=== PATIENT | female | born 1955 ===

== ENCOUNTER 2018-10-20 23:59 | Emergency (ER) | payer OTHER ==
[2018-10-21 00:13] VITALS: O2SAT 97
[2018-10-21 00:43] LABS: HEMOGLOBIN 14.8 g/dL (11.0-16.0); MEAN CORPUSCULAR HEMOGLOBIN 29.9 pg (27.0-31.0); MEAN CORPUSCULAR HGB CONC 33.6 g/dL (33.0-37.0); RBC 4.96 Mil/uL (3.80-5.20); RED CELL DISTRIBUTION WIDTH 12.7 % (11.5-14.5); WHITE BLOOD COUNT 8.8 K/uL (4.8-10.8)
[2018-10-21 00:54] LABS: ALB/GLOB RATIO 1.5 (1.0-2.1); ALBUMIN 4.8 g/dL (3.5-5.0); ALT/SGPT 53 U/L (9-52); AST/SGOT 46 U/L (14-36); BLOOD UREA NITROGEN 17 mg/dL (7-17); CALCIUM 9.8 mg/dl (8.6-10.4); GFR NON-AFRICAN AMERICAN > 60
[2018-10-21 02:10] VITALS: BP 100/65; PULSE 58; RESP 20; TEMP 97.8
--- NOTE | 2018-10-21 02:12 | C.PDOC ---
History Of Present Illness 63 year old female presents to the ED for evaluation of a frontal headache which began around two weeks ago. Patient notes her pain occasionally radiates to her mid-scalp/occipital region. She has been trying acupuncture without significant relief. Patient has not taken any pain medications. Today, patient began experiencing a mild tingling sensation to her left cheek area and pain to her neck, which prompted this visit. Patient denies fever, chills, vision change, recent trauma/injury, vomiting, or unilateral numbness/weakness. Time Seen by Provider: 10/21/18 00:16 Chief Complaint (Nursing): Headache History Per: Patient History/Exam Limitations: no limitations Onset/Duration Of Symptoms: Other (two weeks ) Current Symptoms Are (Timing): Still Present Quality: Aching Associated Symptoms: denies: Photophobia, Blurred Vision, Extremity Weakness Additional History Per: Patient Past Medical History Reviewed: Historical Data, Nursing Documentation, Vital Signs Vital Signs: Last Vital Signs Temp 98.2 F 10/21/18 00:10 Pulse 72 10/21/18 00:10 Resp 16 10/21/18 00:10 BP 145/78 10/21/18 00:10 Pulse Ox 97 10/21/18 00:10 - Medical History PMH: No Chronic Diseases Surgical History: No Surg Hx Family History: States: Unknown Family Hx - Social History Hx Alcohol Use: No Hx Substance Use: No Review Of Systems Constitutional: Negative for: Fever, Chills Eyes: Negative for: Vision Change Musculoskeletal: Positive for: Neck Pain Neurological: Positive for: Headache, Other (tingling to left cheek area ). Negative for: Weakness, Numbness Physical Exam - Physical Exam Appears: Non-toxic, No Acute Distress Skin: Normal Color, Warm, Dry Head: Atraumatic, Normacephalic Eye(s): bilateral: Normal Inspection, PERRL, EOMI Oral Mucosa: Moist Neck: Normal ROM, No Midline Cervical Tenderness, No Paracervical Tenderness, Supple Chest: Symmetrical, No Deformity, No Tenderness Cardiovascular: Rhythm Regular, No Murmur Respiratory: Normal Breath Sounds, No Rales, No Rhonchi, No Wheezing Extremity: Normal ROM (to bilateral upper lower extremities with good strength ), Capillary Refill (less than 2 seconds ) Neurological/Psych: Oriented x3, Normal Speech (clear ), Normal Cognition, Normal Cranial Nerves (2-12), Normal Motor, Normal Sensation Gait: Steady ED Course And Treatment - Laboratory Results Result Diagrams: 10/21/18 00:39 10/21/18 00:39 O2 Sat by Pulse Oximetry: 97 (on RA) Pulse Ox Interpretation: Normal - CT Scan/US CT Head Other Rad Studies (CT/US): Read By Radiologist, Radiology Report Reviewed CT/US Interpretation: CT SCAN OF THE BRAIN WITHOUT IV CONTRAST. CLINICAL INDICATION: Headache, neck pain. TECHNIQUE: Axial and reformatted sagittal and coronal images of the brain obtained without IV contrast administration. Normal size of the ventricles and extra-axial spaces for the patient's age. Normal white matter tracts of the supratentorial brain. Normal basal ganglia and thalami. Normal brainstem. Normal cerebellum. There is no demonstrated extra- axial, intraparenchymal, or intraventricular hemorrhage. There are no findings of an acute ischemic infarction. Normal calvarium. There is no demonstrated fracture. Normal soft tissue structures. Normal visualized paranasal sinuses. IMPRESSION: Normal unenhanced CT scan of the brain. Progress Note: Toradol IVP and Tramadol PO given. CT Head ordered and reviewed. On reassessment, patient is resting comfortably, showing no signs of distress and reports complete relief of her headahce. Patient continues to show no neurological deficit in the ED, has a stable blood pressure and is stable for discharge. Patient is advised to f/u with PMD within 1-2 days for further evaluation and/or return to the ED if symptoms persist or worsen. Disposition Counseled Patient/Family Regarding: Diagnosis, Need For Followup, Rx Given - Disposition Disposition: HOME/ ROUTINE Disposition Time: 02:09 Condition: STABLE Additional Instructions: Please follow up with PMD for headache management or neurology referral Take medication as directed Return to ER if severe headache, dizzness, numbness, weakness or worse Prescriptions: traMADol [Ultram] 50 mg PO TID #14 tab Instructions: Headache, Adult (DC) Forms: [facility] (Occitan) Print Language: JAPANESE - Clinical Impression Clinical Impression: Headache - PA / GENERAL ASSEMBLER / Resident Statement MD/DO has reviewed & agrees with the documentation as recorded. - Scribe Statement The provider has reviewed the documentation as recorded by the Scribe (Lyndsay Wade) All medical record entries made by the Scribe were at my direction and personally dictated by me. I have reviewed the chart and agree that the record accurately reflects my personal performance of the history, physical exam, medical decision making, and the department course for this patient. I have also personally directed, reviewed, and agree with the discharge instructions and disposition.
--- NOTE | 2018-10-21 09:17 | CT ---
Date of service: 10/21/2018 PROCEDURE: CT HEAD WITHOUT CONTRAST. HISTORY: headache, neck pain COMPARISON: None available. TECHNIQUE: Axial computed tomography images were obtained through the head/brain without intravenous contrast. Radiation dose: Total exam DLP = 990.72 mGy-cm. This CT exam was performed using one or more of the following dose reduction techniques: Automated exposure control, adjustment of the mA and/or kV according to patient size, and/or use of iterative reconstruction technique. FINDINGS: HEMORRHAGE: No intracranial hemorrhage. BRAIN: No mass effect or edema. No atrophy or chronic microvascular ischemic changes. VENTRICLES: Unremarkable. No hydrocephalus. CALVARIUM: Unremarkable. PARANASAL SINUSES: Unremarkable as visualized. No significant inflammatory changes. MASTOID AIR CELLS: Unremarkable as visualized. No inflammatory changes. OTHER FINDINGS: None. IMPRESSION: No evidence of acute intracranial hemorrhage intracranial collection mass effect or midline shift. Preliminary report was submitted by [facility] Radiology contains concordant findings.
--- NOTE | 2018-10-22 17:29 | CARD ---
APPROVED REPORT Date of service: 10/21/2018 EKG Measurement Heart [id number] <Conclusion> Normal sinus rhythm Normal ECG
== END 2018-10-21 02:26 | disposition home or self-care (01) ==
LOC: C.ER 23:59
DX: R51 Headache (principal)
CPT/HCPCS: 36415; 70450; 80053; 85027; 93005; 96374; 99285; J1885